=== PATIENT | male | born 1960 | race Caucasian/White ===

== ENCOUNTER 2020-01-05 11:09 | Emergency (ER) | payer OTHER, BC ==
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
--- NOTE | 2020-01-05 12:17 | CT ---
[id number] CT/CT Sinus Survey WO IV EXAM: LIMITED SINUS CT WITHOUT CONTRAST INDICATION: TMJ MAXILLA PAIN SWELLING. COMPARISON: None DISCUSSION: Infiltrating edema in the right parotid gland is compatible with parotiditis. No sialolith is identified, but evaluation of the distal duct is mildly limited by streak artifact from dental amalgam. Partial right mastoid effusion. There is moderate severe left maxillary sinus mucosal thickening with osseous hypertrophy suggesting chronic sinusitis. A small amount of frothy secretions in the central sinus could relate to superimposed acute component. Mild mucosal thickening left sphenoid sinus and maxillary recess of the right maxillary sinus. The paranasal sinuses are otherwise normally aerated. IMPRESSION: 1. Right parotiditis. 2. Left maxillary sinusitis with chronic and possible acute component. 3. Right mastoid effusion. Guy Camarena MD 01/05/20 0189 Thank you for allowing us to participate in the care of your patient.
[2020-01-05] MEDS ORDERED: Diphtheria,Pertussis(Acell),Tetanus Vaccine 0.5 ML SDV IM ONE (12:29)
[2020-01-05 14:20] LABS: ANION GAP 14.3 mmol/L (5-15); CHLORIDE,CL 103 mmol/L (98-115); SODIUM,NA 138 mmol/L (136-145)
[2020-01-05 14:22] VITALS: BP 140/66; PULSE 66
== END 2020-01-05 13:00 | disposition home or self-care (01) ==
LOC: KA.ED 11:09
DX: S00.83XA Contusion of other part of head, initial encounter (principal); S50.12XA Contusion of left forearm, initial encounter; J32.0 Chronic maxillary sinusitis; I25.10 Atherosclerotic heart disease of native coronary artery without angina pectoris; E78.00 Pure hypercholesterolemia, unspecified; I10 Essential (primary) hypertension; K21.9 Gastro-esophageal reflux disease without esophagitis; Z79.899 Other long term (current) drug therapy; S40.212A Abrasion of left shoulder, initial encounter; S40.211A Abrasion of right shoulder, initial encounter; S50.812A Abrasion of left forearm, initial encounter; Z23 Encounter for immunization; V89.2XXA Person injured in unspecified motor-vehicle accident, traffic, initial encounter
CPT/HCPCS: 36415; 70486; 80053; 81003; 85025; 90471; 90715; 99285-25